=== PATIENT | female | born 1990 | race Caucasian/White ===

== ENCOUNTER 2017-02-14 19:19 | Inpatient (IN) | payer MEDICAID ==
[2017-02-14] MEDS ORDERED: Lactated Ringers 1,000 ML IV ONE (20:29)
[2017-02-14] MEDS ORDERED: Nalbuphine 10 MG/1 ML Vial IVPUSH PRN (20:29)
[2017-02-14] MEDS: Sodium Chloride 0.9% 10 ML Syringe FLUSH PRN ×2 (21:10→21:14)
[2017-02-14] MEDS: Lactated Ringers 1,000 ML IV SCH (22:12)
[2017-02-14] MEDS ORDERED: fentaNYL 100 MCG/2 ML SDV EPIDUR ONE (23:35)
[2017-02-14] MEDS ORDERED: fentaNYL 300 MCG in Ropivacaine 200 ML IV ONE (23:35)
[2017-02-15] MEDS: Lactated Ringers 1,000 ML IV SCH (00:16)
[2017-02-15] MEDS ORDERED: Oxytocin 10 Units/1 ML SDV IM ONE (02:53)
[2017-02-15] MEDS ORDERED: Naloxone 0.4 MG in Sodium Chloride 0.9% 100 ML IV PRN (03:19)
[2017-02-15] MEDS ORDERED: Naloxone 0.4 MG/ML SDV IVPUSH PRN (03:19)
[2017-02-15] MEDS ORDERED: ePHEDrine 50 MG/ML SDV IVPUSH PRN (03:19)
[2017-02-15] MEDS ORDERED: diphenhydrAMINE 50 MG/ML SDV IVPUSH PRN (03:19)
[2017-02-15] MEDS ORDERED: Promethazine 25 MG/ML SDV IV PRN (03:19)
[2017-02-15] MEDS ORDERED: Ondansetron 4 MG/2 ML SDV IVPUSH PRN (03:20)
[2017-02-15] MEDS: Ibuprofen 600 MG Tab PO PRN (09:54)
[2017-02-15] MEDS: Acetaminophen/Codeine 300-30 MG Tab PO PRN ×2 (12:19→18:29)
--- NOTE | 2017-02-15 14:30 | DEL ---
DATE OF DELIVERY: 02/15/2017 HISTORY OF PRESENT ILLNESS: Debra Gracia is a 26-year-old 6, para 2, AB 3, female, admitted on the morning of 02/14/2017. Had been in the evening before with premonition of labor. NST and well being along with maternal well being were satisfactory. She returned later in the day with more active labor. Uncomplicated course, healthy fit mom, group B rectovaginal culture negative. On admission, it was found that cervical dilatation was unobtainable by the nursing staff. Upon my review, she was found to be 4 cm, intact membranes, -1 station, satisfactory well being. Labor progressed with some success. Nubain was given for analgesia x2. Epidural anesthesia was placed with good analgesic benefit. Over the course of a couple of hours time, she went to complete. I was asked to participate. It should be noted that I ruptured membranes at the time of examination when she was 4 cm. When complete, maternal effort was a bit subdued. Epidural was discontinued. Over the course of about an hour she had urge to push. Second stage of labor progressed successfully. On examination, she was found to be LOP. Maternal effort was good. Concerted effort was satisfactory, brought the baby down against the perineum without episiotomy was delivered in DAVID nearly OT presentation. Both nares and oropharynx were suctioned aggressively, no nuchal cord was absent and delivered with gentle traction. weight 7 pounds 9.5 ounces, scores 9 and 9. Was delivered without incident. Nose and oropharynx were suctioned, child was active appropriate, placed on mom's tummy for warming and resuscitation. Cord was held for an interval of time until pulsation has stopped, it was then cut with dad in attendance. Three cord vessels identified. Cord blood was obtained. It was spontaneous placental separation without complication. 10 units of intramuscular Pitocin was given by nursing staff. Perineum was inspected, there was a small second degree tear. Was infiltrated with 2% lidocaine and repaired in complex fashion with 2-0 chromic suture. Surgical results were excellent, blood loss 150 mL. ASSESSMENT: 1. Term intrauterine . 2. Nubain analgesia. 3. Epidural anesthesia. 4. 7 pounds 9.5 ounce male , scores 9 and 9. 5. Second degree tear. 6. Planned nursing. PLAN: Routine maternal care. No complicating issues. We will check hemoglobin and plan nursing course of therapy. /[id number] SAHYNA/NAOMIE WADE
[2017-02-16] MEDS: Ibuprofen 600 MG Tab PO PRN (04:59)
[2017-02-16 14:24] VITALS: BP 103/61
--- NOTE | 2017-02-17 01:46 | DISCH ---
DISCHARGE DATE: 02/16/2017 HOSPITAL COURSE: Debra Gracia is a 26-year-old multigravida female, 2 days . Up, ambulating, and doing well. Minimal perineal discomfort. Lochia and flow have been satisfactory. Hemoglobin 10.8 g percent. PHYSICAL EXAMINATION: U-2 tone satisfactory, perineum intact. exam satisfactory. PLAN: Discharge home with lengthy instructions, vitamin, well nursing, ibuprofen and Tylenol per protocol for pain, limitations and restrictions as appropriate, followup, and 6-week visit. /[id number] SHAYNA/NAOMIE
== END 2017-02-16 13:55 | disposition home or self-care (01) | DRG 560 ==
LOC: FB.OBCHECK 19:19 → FB.OB 19:19 → UNDOADMIN 22:05 → FB.OBCHECK 22:05 → FB.OB 22:05 → UNDODISIN 02-16 13:55
PROVIDERS: ADMIT Family Medicine; ATTEND Family Medicine
PROC: 10E0XZZ Delivery of Products of Conception, External Approach (ICD-10-PCS; principal; 2017-02-15)
PROC: 10907ZC Drainage of Amniotic Fluid, Therapeutic from Products of Conception, Via Natural or Artificial Opening (ICD-10-PCS; 2017-02-15)
PROC: 0KQM0ZZ Repair Perineum Muscle, Open Approach (ICD-10-PCS; 2017-02-15)
PROC: 00HU33Z Insertion of Infusion Device into Spinal Canal, Percutaneous Approach (ICD-10-PCS; 2017-02-15)
DX: O70.1 Second degree perineal laceration during delivery (principal); Z3A.39 39 weeks gestation of pregnancy; Z37.0 Single live birth
CPT/HCPCS: 36415; 85014; 85018; A9270-GY; J1200; J2300; J2590; J2795; J3010; J7050; J7120